=== PATIENT | male | born 1985 | race Caucasian/White ===

== ENCOUNTER → 2017-09-14 | Day surgery (SDC) | payer OTHER ==
--- NOTE | 2017-09-14 16:50 | RADIOLOGY REPORT (SQ) ---
EXAM DESCRIPTION: ARTHRO HIP INJ W/ANESTHESIA; FLUORO/NEEDLE PLACEMENT COMPLETED DATE/TIME: 09/14/2017 3:33 pm REASON FOR STUDY: LEFT HIP PAIN COMPARISON: None. FLUOROSCOPY TIME: 13 seconds 1 digital radiographic image saved to PACS. LIMITATIONS: None. PROCEDURE: Procedure, risks, benefits and alternatives explained to patient who then gave written c onsent. The left hip was marked and a time-out was called for correct marking verification. Entry s ite marked using fluoroscopic guidance. Hip prepped and draped using sterile technique. Local anes thesia achieved using 6 mL of 1% lidocaine injection. 22 gauge spinal needle introduced into the michael nt space under direct fluoroscopic visualization. Non-ionic contrast instilled to confirm intra-gera cular position. Dilute gadolinium solution then injected. Needle removed and entry site covered wi th sterile bandage. No immediate complications noted. TECHNIQUE: Digital images acquired during fluoroscopy and stored on PACS. Patient immediately take n to the MR suite for additional imaging. INJECTION LOCATION: Left hip CONTRAST TYPE AND AMOUNT: 1 mL of Isovue-300 was injected to confirm intra-articular needle placement followed by 10 mL of Prohance/Saline mixture. IMPRESSION: SUCCESSFUL NEEDLE PLACEMENT AND INJECTION FOR LEFT HIP MR ARTHROGRAM. COMMENT: Quality ID 145: Final reports for procedures using fluoroscopy that document radiation exp osure indices, or exposure time and number of fluorographic images (if radiation exposure indices are not available) TECHNICAL DOCUMENTATION: JOB ID: [id number] [employer]- All Rights Reserved Reading location - IP/workstation name: [email or web address]
--- NOTE | 2017-09-14 16:50 | RADIOLOGY REPORT (SQ) ---
EXAM DESCRIPTION: ARTHRO HIP INJ W/ANESTHESIA; FLUORO/NEEDLE PLACEMENT COMPLETED DATE/TIME: 09/14/2017 3:33 pm REASON FOR STUDY: LEFT HIP PAIN COMPARISON: None. FLUOROSCOPY TIME: 13 seconds 1 digital radiographic image saved to PACS. LIMITATIONS: None. PROCEDURE: Procedure, risks, benefits and alternatives explained to patient who then gave written c onsent. The left hip was marked and a time-out was called for correct marking verification. Entry s ite marked using fluoroscopic guidance. Hip prepped and draped using sterile technique. Local anes thesia achieved using 6 mL of 1% lidocaine injection. 22 gauge spinal needle introduced into the michael nt space under direct fluoroscopic visualization. Non-ionic contrast instilled to confirm intra-gera cular position. Dilute gadolinium solution then injected. Needle removed and entry site covered wi th sterile bandage. No immediate complications noted. TECHNIQUE: Digital images acquired during fluoroscopy and stored on PACS. Patient immediately take n to the MR suite for additional imaging. INJECTION LOCATION: Left hip CONTRAST TYPE AND AMOUNT: 1 mL of Isovue-300 was injected to confirm intra-articular needle placement followed by 10 mL of Prohance/Saline mixture. IMPRESSION: SUCCESSFUL NEEDLE PLACEMENT AND INJECTION FOR LEFT HIP MR ARTHROGRAM. COMMENT: Quality ID 145: Final reports for procedures using fluoroscopy that document radiation exp osure indices, or exposure time and number of fluorographic images (if radiation exposure indices are not available) TECHNICAL DOCUMENTATION: JOB ID: [id number] [employer]- All Rights Reserved Reading location - IP/workstation name: [id number]
--- NOTE | 2017-09-14 17:00 | RADIOLOGY REPORT (SQ) ---
EXAM DESCRIPTION: MRI LT LOWER JOINT WITH COMPLETED DATE/TIME: 09/14/2017 4:31 pm REASON FOR STUDY: CHONIC LEFT HIP PAIN COMPARISON: None. TECHNIQUE: Post arthrogram imaging left hip performed using T1 and T1 and T2 fat saturated sequences of the pelvis and left hip LIMITATIONS: None. FINDINGS: LEFT HIP: JOINT DISTENSION: Adequate. No loose body. BONE MARROW: No edema. No marrow replacement. FEMORAL HEAD, NECK, AND ACETABULUM: No occult fracture. No osteophytes or subchondral cysts. Normal s phericity of femoral head/neck junction. No acetabular dysplasia. No evidence of femoroacetabular imp ingement. LABRUM AND CARTILAGE: No labral tear. Cartilage of normal thickness without delamination. RIGHT HIP: Large [id number]-py-[id number] imaging of the left hip included on the pelvis. There is avascular n ecrosis of the right femoral head without articular surface collapse or irregularity. No right hip j oint effusion. No right trochanteric bursal effusion. PUBIC RAMI AND ISCHIUM: No occult fracture. SACRUM AND YONATHAN: SI joints normal in signal. No occult fracture. EFFUSIONS: None. MUSCLES AND SOFT TISSUES: Adductors and piriformis normal. Abductors and greater trochanteric bursa n ormal without edema or fluid. Iliopsoas bursa without fluid. Hamstring attachments without edema or t ear. PELVIC SOFT TISSUES: No masses or adenopathy. SCIATIC NERVE: Identified without masses. OTHER: No other significant finding. IMPRESSION: Unremarkable MR arthrogram of the left hip. Incidental finding of avascular necrosis right femoral head weight-bearing surface without articular surface collapse. TECHNICAL DOCUMENTATION: JOB ID: [id number] [employer]- All Rights Reserved Reading location - IP/workstation name: [facility]
== END ==
LOC: RAD 14:45 → EDSTATUS 15:00
PROVIDERS: ATTEND Physical Therapist
DX: G89.29 Other chronic pain (principal); M25.552 Pain in left hip; M87.052 Idiopathic aseptic necrosis of left femur
CPT/HCPCS: 73722; 77002; 27095; A9576